=== PATIENT | male | born 1930 | race Caucasian/White ===

== ENCOUNTER → 2017-04-02 | Outpatient (CLI) | payer MEDICARE, BC ==
[~2017-04-02] MED LIST: ACTOS15 MG PO; ADULT LOW DOSE81 MG PO; AMLODIPINE BESYL5 MG PO; ASPIR 8181 MG PO; ASPIRIN325 PO; ATORVASTATIN CA40 MG PO; AZITHROMYCIN 2250 MG PO; CEFUROXIME500 MG PO; CENTRUM COMPLE1 EACH PO; CITRUCEL500 MG PO; COLACE100 MG PO; ELIQUIS5 MG PO; FIBER LAXATIV0.52 GM PO; FIBERCON625 M1 PO; FISH OIL 1,2001 EAC3 PO; FISH OIL SOFTG1 EACH PO; GLUCOSAMINE HC500 MG PO; IBUPROFEN 400400 M2 PO; LEVAQUIN 500 M500 M2 PO; LISINOPRIL20 MG PO; LISINOPRIL40 MG PO; LOPRESSOR25 PO; LOVASTAT10 PO; MEDROL DOSPAK21 TA1 PO; MEDROLDOSEPACK PO; METAMUCIL0.52 GM PO; MUCINEX600 MG PO; NEILMED SINUS R1 KIT NASAL; NORVASC10 MG PO; OMEGA-31000 M1 PO; OXYBUTYNIN 5 MG5 M1 PO; PREDNISONE 10 M10 MG PO; PRINIVIL40 MG PO; TAMSULOSIN HCL0.4 MG PO; TRIPLE FLEX CA1 EACH PO; VENTOLIN HFA 1818 GM INH; VITAMIN D3400 UNIT PO; XARELTO20 MG PO
[2017-04-02 14:08] LABS: ABSOLUTE BASOPHILS 0.1 thou/uL (0.0-0.2); ABSOLUTE EOSINOPHILS 0.2 thou/uL (0.0-0.7); ABSOLUTE LYMPHOCYTES 2.1 thou/uL (0.8-5.3); ABSOLUTE MONOCYTES 0.6 thou/uL (0.0-1.2); ABSOLUTE NEUTROPHILS 4.4 thou/uL (1.6-8.1); BASOPHILS 0.8 %; EOSINOPHILS 3.2 %; HEMATOCRIT 40.8 % (42.0-52.0); HEMOGLOBIN 14.3 gm/dL (14.0-18.0); MCH 30.7 pg (26.0-34.0); MCHC 35.1 g/dL (28.0-37.0); MCV 87.4 fL (80.0-100.0); MONOCYTES 8.3 %; MPV 8.6 fl. (7.2-11.1); NUCLEATED RBCS 0 /100WBC; PLATELET COUNT* 172 thou/uL (150-400); POLYS 59.7 %; RBC 4.67 mil/uL (4.50-6.00); WBC 7.4 thou/uL (4.0-11.0)
[2017-04-02 14:10] LABS: CREATININE 0.9 mg/dL (0.6-1.3)
[2017-04-02 14:12] LABS: APTT 31.3 Seconds (25.0-31.3); INR 1.1; PROTIME 11.1 Seconds (9.20-11.50)
== END ==
LOC: M.LAB 12:30
PROVIDERS: Urology
DX: C61 Malignant neoplasm of prostate (principal); R91.1 Solitary pulmonary nodule; K76.0 Fatty (change of) liver, not elsewhere classified; N28.1 Cyst of kidney, acquired; K44.9 Diaphragmatic hernia without obstruction or gangrene; N31.2 Flaccid neuropathic bladder, not elsewhere classified; M47.895 Other spondylosis, thoracolumbar region; I25.10 Atherosclerotic heart disease of native coronary artery without angina pectoris; I10 Essential (primary) hypertension; E78.5 Hyperlipidemia, unspecified; Z90.49 Acquired absence of other specified parts of digestive tract

== ENCOUNTER 2018-09-13 06:08 | Inpatient (IN) | payer OTHER ==
[~2018-09-13] VITALS: Ht 182.9 cm; Wt 97.3 kg
[2018-09-13 06:16] VITALS: BP 149/105
[2018-09-13 06:39] LABS: ABSOLUTE BASOPHILS 0.1 thou/uL (0.0-0.2); ABSOLUTE EOSINOPHILS 0.1 thou/uL (0.0-0.7); ABSOLUTE LYMPHOCYTES 1.7 thou/uL (0.8-5.3); ABSOLUTE MONOCYTES 0.8 thou/uL (0.0-1.2); ABSOLUTE NEUTROPHILS 5.1 thou/uL (1.6-8.1); BASOPHILS 0.8 %; EOSINOPHILS 1.6 %; HEMATOCRIT 44.2 % (42.0-52.0); HEMOGLOBIN 15.1 gm/dL (14.0-18.0); LYMPHOCYTES 21.9 %; MCH 30.1 pg (26.0-34.0); MCHC 34.1 g/dL (28.0-37.0); MCV 88.5 fL (80.0-100.0); MONOCYTES 9.9 %; MPV 9.7 fl. (7.2-11.1); NUCLEATED RBCS 0 /100WBC; PLATELET COUNT* 145 thou/uL (150-400); POLYS 65.8 %; RBC 4.99 mil/uL (4.50-6.00); RDW-CV 14.2 % (10.5-14.5); WBC 7.8 thou/uL (4.0-11.0)
[2018-09-13 06:52] LABS: INR 1.1; PROTIME 11.5 Seconds (9.20-11.50)
[2018-09-13 06:55] LABS: CREATININE 1.3 mg/dL (0.6-1.3); POTASSIUM 4.2 mmol/L (3.5-5.1)
[2018-09-13 06:59] LABS: ALBUMIN 3.9 g/dL (3.4-5.0); TOTAL BILIRUBIN 0.8 mg/dL (<0.1-1.0); TOTAL PROTEIN 7.8 g/dL (6.4-8.2)
--- NOTE | 2018-09-13 07:48 | NUR ---
DERIC NOTIFIED UPON PT RETURN PT CONNECTED TO MONITOR AND O2
[2018-09-13] MEDS ORDERED: TYLENOL325 MG PO ×2 (08:36→08:37)
[2018-09-13 11:16] LABS: URINE BILIRUBIN NEGATIVE (Negative); URINE BLOOD NEGATIVE (Negative); URINE CLARITY CLEAR; URINE COLOR YELLOW; URINE GLUCOSE-RANDOM NEGATIVE (Negative); URINE KETONES NEGATIVE (Negative); URINE LEUKOCYTES-REFLEX NEGATIVE (Negative); URINE NITRITE-REFLEX NEGATIVE (Negative); URINE PROTEIN NEGATIVE (Negative); URINE UROBILINOGEN 0.2 E.U./dl (0.2-1.0)
[2018-09-13] MEDS ORDERED: BUMETANIDE0.25 MG/1 PO (12:24)
[2018-09-13 13:22] VITALS: BP 129/86
--- NOTE | 2018-09-13 15:43 | EKG ---
[place] [address] ELECTROCARDIOGRAM REPORT Name: MARY JANE ANDERSON Room: [place] [address] ADM IN [facility].#: [id number] Admission: 09/13/18 Attend Phys: Grecia Limon Discharge: Date of : 34 Report #: [id number] THIS REPORT FOR: //name// [facility] ED Test Date: 2018-09-13 Test Time: 06:24:41 Pat Name: MARY JANE ANDERSON Department: Room: [facility] Gender: M Drop Wirer: : 1930 Requested By: Nayana Man Order Number: [id number] MD: Felix Camacho Measurements Intervals [place] Rate: 80 P: MI: QRS: -66 QRSD: 163 T: 96 QT: 434 QTc: 501 Interpretive Statements Afib/flut and V-paced complexes No further analysis attempted due to paced rhythm Compared to ECG 01/24/2017 08:23:03 Sinus rhythm no longer present First degree AV block no longer present T-wave abnormality no longer present Possible ischemia no longer present Electronically Signed On 09-13-2018 15:43:25 CDT by Felix Camacho [email or web address] <ELECTRONICALLY SIGNED> By: Felix Camacho MD, FACC 09/13/18 1543 Felix Camacho MD, FACC /EPI
[2018-09-13 17:22] VITALS: BP 121/68
[2018-09-13 21:10] VITALS: BP 136/91
[2018-09-13 21:16] VITALS: BP 124/51
[2018-09-14] VITALS: BP 143/94
[2018-09-14 04:00] VITALS: BP 108/71
--- NOTE | 2018-09-14 05:50 | NUR ---
RECEIVED REPORT AND ASSUMED CARE AT 1910. PT TRANSPORTED BY NURSING FROM ED TO ROOM 224. VSS. CARDIAC MONITORING IN PLACE. PT DENIES COMPLAINTS OF PAIN. ASSESSMENT COMPLETED CHARTED. NIH=0. PT UP WITH ASSIST, 2L NC. CPAP AT NOC. BED LOCKED IN LOWEST POSITION, CALL LIGHT WITHIN REACH, BED ALARM ON. HOURLY ROUNDING COMPLETED AND ALL NEEDS MET.
[2018-09-14 06:08] LABS: CALCIUM 8.7 mg/dL (8.5-10.1); CREATININE 1.2 mg/dL (0.6-1.3); POTASSIUM 3.8 mmol/L (3.5-5.1)
[2018-09-14 07:59] VITALS: BP 130/85
--- NOTE | 2018-09-14 09:35 | NUR ---
ASSUMED CARE OF PT AT 0730. PT RESTING IN BED. PT A&0X4, FORGETFUL AT TIMES. PT TRACING V PACED ON THE CHIEF QUALITY OFFICER. +1 EDEMA NOTED TO BILATERAL LE'S. PT ON 2L NC SAT UPPER 90'S. PT DENIES ANY PAIN OR SHORTNESS OF BREATH AT THIS TIME. [facility] COMPLETED-PT SCORING 0. PT UP WITH 1 ASSIST TO BATHROOM. CARDIOLOGY CONSULT IN PLACE. PT AT BEDSIDE AND UPDATED ON CURRENT PLAN OF CARE. SPIRITUAL CARE HERE PER PT REQUEST. PT GOAL FOR TODAY IS TO MONITOR LABS, INCREASE ACTIVITY AND IV LASIX. AM ASSESSMENT CHARTED. MEDICATIONS PER JUN. PT REPOSITIONS SELF. HOURLY ROUNDING OBSERVED. BED IN LOW POSITION. BED ALARM IN PLACE. FALL PRECAUTIONS IN PLACE. CALL LIGHT WITHIN REACH. WILL CONTINUE PLAN OF CARE.
--- NOTE | 2018-09-14 09:50 | CON ---
[address] [address] CONSULTATION Name: MARY JANE ANDERSON Room: [address] IN .R.#: [id number] Admission: 09/13/18 Attend Phys: Grecia Limon Discharge: Date of : 34 Report #: [id number] THIS REPORT FOR: //name// CC: CHELLY Oh CARDIOLOGY CONSULT NOTE INDICATION: Acute heart failure. HISTORY OF PRESENT ILLNESS: The patient is a very pleasant 88-year-old gentleman well known to myself. He has a history of single-vessel coronary artery disease with left anterior descending stenosis, which was not intervened upon. He has preserved left ventricular systolic function by noninvasive studies. 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 He has a history of paroxysmal atrial fibrillation. He is chronically anticoagulated and having no bleeding problems. He presented to the hospital with confusion, choking and heart failure. He was given Lasix and has had significant diuresis. His primary complaint seems to be exertional dyspnea as well as some insomnia, moderate amount of confusion which has been quite concerned and choking when he swallows. CARDIAC RISK FACTORS: Include hypertension and dyslipidemia. Previous evaluation of his atypical chest pain has been unremarkable. PAST MEDICAL HISTORY: 1. Chronotropic incompetence, status post dual chamber pacemaker placement. 2. Paroxysmal atrial fibrillation. 3. Chronic anticoagulation. 4. Single vessel coronary artery disease as outlined above. 5. History of recurrent transient ischemic attacks. 6. Hypertension. 7. Dyslipidemia. PAST SURGICAL HISTORY: Permanent pacemaker placement for chronotropic incompetence. FAMILY HISTORY: Noncontributory. SOCIAL HISTORY: The patient is a nonsmoker. He does not drink alcohol. He lives with his family including his . ALLERGIES: CETIRIZINE. HOME MEDICATIONS: Tylenol p.r.n., albuterol inhaler 1 puff q.4 hours p.r.n., amlodipine 10 mg half a tablet b.i.d., Eliquis 5 mg b.i.d., atorvastatin [address] [place] [address] CONSULTATION Name: MARY JANE ANDERSON Room: [address]#: [id number] Admission: 09/13/18 Attend Phys: Grecia Limon Discharge: Date of : 32 Report #: [id number] at bedtime, Bumex daily dose unknown, vitamin D3 400 units daily, Colace 100 mg daily, glucosamine chondroitin supplement daily, lisinopril 20 mg b.i.d., metoprolol tartrate 50 mg b.i.d., fish oil 1200 mg b.i.d., Metamucil 1 capsule daily, sinus rinse p.r.n., and Flomax 0.4 mg daily. PHYSICAL EXAMINATION: VITAL SIGNS: Blood pressure 121/68, pulse 77. Telemetry monitoring currently shows atrially sensed ventricularly paced rhythm. HEENT: Normocephalic and atraumatic. Extraocular muscles intact. Mucous membranes are dry. NECK: Shows no jugular venous distention. CHEST: Reveals diminished breath sounds. I do not appreciate wheezes or rales. CARDIAC: Distant S1 and S2, without gallop or murmur. ABDOMEN: Soft and nontender. EXTREMITIES: Show 2+ edema to the knees bilaterally. SKIN: Dry. LABORATORY DATA: A 12-lead EKG shows what appears to be atrial fibrillation with ventricular pacing. Chest x-ray shows pulmonary vascular congestion. CTA of the chest shows no evidence of pulmonary embolism. There is pulmonary congestion noted. Labs are reviewed. Troponins are unremarkable. NT-proBNP is elevated consistent with acute heart failure. IMPRESSION AND RECOMMENDATION: 1. Acute on chronic diastolic heart failure. Agree with diuresis with IV Lasix to improve the patient's breathing. I would repeat an echocardiogram, as it has been sometime since we assessed left ventricular function. 2. Hypertension. Blood pressure adequately controlled, especially with diuresis. Continue home medications as outlined above. 3. Confusion, etiology not entirely clear. I would check UA to rule out urinary tract infection and urosepsis. 4. Aspiration. We would recommend swallow study. 5. Status post dual chamber pacemaker placement for chronotropic insufficiency. We will interrogate pacemaker function while in hospital, as he is due for that at this time. <ELECTRONICALLY SIGNED> By: Felix Camacho MD, FACC 09/14/18 0950 [id number] Camacho MD, FACC /nt
--- NOTE | 2018-09-14 11:24 | NUR ---
Pt is A&O. Resides at home with his . completes cooking, dtr comes several times/month to clean, Pt continues to drive. Pt is independent with ADLs, assists as needed. No home o2. Pt does sleep with a cpap. Pt has a walker, cane and wc at home, only really uses them for community distances, if at all. No hx of HH or SNF. Goal is home at dc, unsure if he will have any dc needs, CM will continue to follow.
[2018-09-14 11:54] VITALS: BP 90/55
--- NOTE | 2018-09-14 14:09 | NUR ---
Message received from [place] [facility] DESTIN spoke with Dr Oh, he informed that he does not feel that the Pt is medically stable to transfer today, but maybe tomorrow. DESTIN left a for transfer nurse at [phone]
[2018-09-14 16:00] VITALS: BP 93/59
--- NOTE | 2018-09-14 16:38 | NUR ---
NO ACUTE CHANGES THROUGHOUT SHIFT. REFER TO CHARTING. PT SLOWLY PROGRESSING TOWARDS GOALS. IV LASIX TODAY WITH GOOD URINE OUTPUT. PT DENIES ANY PAIN OR SHORTNESS OF BREATH THROUGHOUT AFTERNOON. CONTINUES TO TRACE V PACED ON THE DOCUMENTATION CLERK. ON 2L NC SAT 95%. PT UP WITH 1 ASSIST TO BATHROOM. AT BEDSIDE THROGUHOUT SHIFT. PT UP TO CHAIR FOR MEALS-TOLERATED WELL. MEDICATIONS PER JUN. PT REPOSITIONS SELF. HOURLY ROUNDING OBSERVED. BED IN LOW POSITION. CALL LIGHT WITHIN REACH. WILL CONTINUE PLAN OF CARE.
[2018-09-14 20:00] VITALS: BP 120/85; BP 90/50
[2018-09-15] VITALS: BP 108/71
[2018-09-15 04:00] VITALS: BP 127/84
--- NOTE | 2018-09-15 07:39 | NUR ---
PT CARE ASSUMED AT 1930. SAT MAINTAINED IN 02. ALERT AND ORIENTED X4, FORGETFUL AT TIMES. CALL LIGHT WITHINI REACH AND BED IN LOW POSITION. DENIES PAIN AND SOB. HOURLY ROUNDING DONE FOR PT SAFETY.
[2018-09-15 08:00] VITALS: BP 128/89
--- NOTE | 2018-09-15 09:28 | NUR ---
ASSUMED CARE OF PT AT 0730. PT RESTING IN BED. AND FAMILY AT BEDSIDE. PT A&0X4, FORGETFUL AND CONFUSED AT TIMES. IMPULSIVE AT TIMES. BED/CHAIR ALARM IN PLACE. PT DENIES ANY PAIN OR SHORTNESS OF BREATH AT THIS TIME. PT TRACING V PACED ON THE NATIONAL SALES EXECUTIVE. ON 2L NC SAT 96%. PT UP WITH 1 ASSIST TO BATHROOM. PT GOAL FOR TODAY IS ECHO, TITRATE OXYGEN AND INCREASE ACTIVITY. AM ASSESSMENT CHARTED. MEDICATIONS PER JUN. PT REPOSITIONS SELF. HOURLY ROUNDING OBSERVED. BED IN LOW POSITION. BED ALARM IN PLACE. FALL PRECAUTIONS IN PLACE. CALL LIGHT WITHIN REACH. WILL CONTINUE PLAN OF CARE.
--- NOTE | 2018-09-15 11:05 | 2DMMODE ---
[place] [address] 2 D/M-MODE ECHOCARDIOGRAM Name: MARY JANE ANDERSON Room: [address] IN [facility]#: [id number] Admission: 09/13/18 Attend Phys: Herb Oh Discharge: Date of : 34 Date of Service: 09/15/18 1105 Report #: [id number] THIS REPORT FOR: //name// APPROVED REPORT Study performed: 09/15/2018 10:29:43 EXAM: Comprehensive 2D, Doppler, and color-flow Echocardiogram Patient Location: In-Patient Room #: [facility] Status: routine BSA: 2.19 HR: 80 bpm BP: 128/89 mmHg Rhythm: NSR Other Information Study Quality: Good Indications Dyspnea 2D Dimensions IVSd: 14.76 (7-11mm) LVOT Diam: 20.76 (18-24mm) LVDd: 52.72 mm PWd: 12.74 (7-11mm) Ascending Ao: 37.11 (22-36mm) LVDs: 44.28 (25-40mm) Aortic Root: 37.40 mm Volumes Left Atrial Volume (Systole) LA ESV Index: 34.90 mL/m2 Aortic Valve AoV Peak Eligio.: 1.15 m/s AO Peak Gr.: 5.32 mmHg LVOT Max P.89 mmHg AO Mean Gr.: 2.94 mmHg LVOT Mean P.94 mmHg LVOT Max V: 0.69 m/s AO V2 VTI: 17.40 cm LVOT Mean V: 0.44 m/s REGI (VTI): 2.09 cm2 LVOT V1 VTI: 10.73 cm Mitral Valve E/A Ratio: 2.03 MV Decel. Time: 174.04 ms MV E Max Eligio.: 0.61 m/[place] [address] 2 D/M-MODE ECHOCARDIOGRAM Name: MARY JANE ANDERSON Room: [address] IN ..#: [id number] Admission: 09/13/18 Attend Phys: Herb Oh Discharge: Date of : 34 Date of Service: 09/15/18 1105 Report #: [id number] MV PHT: 50.47 ms MVA (PHT): 4.36 cm2 TDI E/Lateral E': 4.36 E/Medial E': 6.78 Medial E' Eligio.: 0.09 m/s Lateral E' Eligio.: 0.14 m/s Pulmonary Valve PV Peak Eligio.: 0.79 m/s PV Peak Gr.: 2.52 mmHg Tricuspid Valve RAP Estimate: 5.00 mmHg TR Peak Gr.: 24.22 mmHg RVSP: 29.00 mmHg PA Pressure: 29.00 mmHg Left Ventricle The left ventricle is normal size. There is global hypokinesis. The anteroseptal wall appears almost akinetic. Mild concentric left ventricular hypertrophy. Left ventricular systolic function is moderate to severely decreased. LVEF is 30-35%. Transmitral Doppler flow pattern suggests restrictive physiology. Right Ventricle The right ventricle is normal size. The right ventricular systolic function is normal. Pacemaker lead is present in the right ventricle. Atria Left atrium is mildly dilated. Right atrium is mildly dilated. Aortic Valve Aortic valve leaflets are mildly thickened. No aortic regurgitation is present. There is no aortic valvular stenosis. Mitral Valve The mitral valve is normal in structure. Mild mitral regurgitation. No evidence of mitral valve stenosis. Tricuspid Valve The tricuspid valve is normal in structure. Mild tricuspid regurgitation. No pulmonary hypertension. Pulmonic Valve The pulmonary valve is normal in structure. There is no pulmonic [place] [address] 2 D/M-MODE ECHOCARDIOGRAM Name: DANY ANDERSONCalvin Kinsey Room: [address]#: [id number] Admission: 09/13/18 Attend Phys: Herb Oh Discharge: Date of : 32 Date of Service: 09/15/18 1105 Report #: [id number] Great Vessels The aortic root is normal in size. IVC is normal in size and collapses >50% with inspiration. Pericardium There is no pericardial effusion. <Conclusion> The left ventricle is normal size. Mild concentric left ventricular hypertrophy. Left ventricular systolic function is moderate to severely decreased. LVEF is 30-35%. Transmitral Doppler flow pattern suggests restrictive physiology. Left atrium is mildly dilated. Right atrium is mildly dilated. Mild mitral regurgitation. Mild tricuspid regurgitation. No pulmonary hypertension. <ELECTRONICALLY SIGNED> By: Felix Camacho MD, FACC 09/15/18 1105 1105 1105 Felix Camacho MD, FACC /INF
[2018-09-15 12:03] VITALS: BP 107/70
--- NOTE | 2018-09-15 12:54 | NUR ---
Pt continues to not be medically stable to transfer, plan cath tomorrow.
[2018-09-15 14:07] LABS: HEMATOCRIT 42.6 % (42.0-52.0); HEMOGLOBIN 14.4 gm/dL (14.0-18.0); MCHC 33.9 g/dL (28.0-37.0); MCV 88.3 fL (80.0-100.0); MPV 9.8 fl. (7.2-11.1); RBC 4.82 mil/uL (4.50-6.00); RDW-CV 13.9 % (10.5-14.5); WBC 7.6 thou/uL (4.0-11.0)
[2018-09-15 14:11] LABS: CALCIUM 8.7 mg/dL (8.5-10.1); CREATININE 1.2 mg/dL (0.6-1.3); POTASSIUM 3.8 mmol/L (3.5-5.1)
[2018-09-15 14:12] LABS: INR 1.2; PROTIME 12.2 Seconds (9.20-11.50)
[2018-09-15 16:28] VITALS: BP 110/77
--- NOTE | 2018-09-15 16:34 | NUR ---
NO ACUTE CHANGES THROUGHOUT SHIFT. REFER TO CHARTING. PT HAD ECHO TODAY-REFER TO RESULTS. CARDIOLOGY CONSULT IN PLACE. ORDERS RECEIVED FOR HEART CATH TOMORROW 09/16. PT NPO AFTER MIDNIGHT. MEDICATION ADJUSTMENTS MADE. REFER TO EMAR. PT PROGRESSING TOWARDS GOALS-PT ON RA SAT UPPER 90'S. DENIES ANY PAIN OR SHORTNESS OF BREATH THIS AFTERNOON. CONTINUES TO TRACE V PACED ON THE PRODUCT PICKER. PT UP WITH 1 ASSIST. UP TO CHAIR FOR MEALS. TOLERATED WELL. AMBULATED IN HALLWAY WITH CARDIAC REHAB AND WALKER. TOLERATED FAIR. PT AT BEDSIDE THROUGHOUT SHIFT. MEDICATIONS PER JUN. PT REPOSITIONS SELF. HOURLY ROUNDING OBSERVED. BED IN LOW POSITION. BED ALARM IN PLACE. FALL PRECAUTIONS IN PLACE. CALL LIGHT WITHIN REACH. WILL CONTINUE PLAN OF CARE.
[2018-09-15 20:10] VITALS: BP 119/73
[2018-09-16] VITALS (16 sets, daily range): BP systolic 104–139; BP diastolic 63–89
--- NOTE | 2018-09-16 05:39 | NUR ---
PT CARE ASSUMED AT 1930. SAT MAINTAINED IN RA. ALERT AND ORIENTED X4, FORGETFUL. DENIES PAIN AND SOB. CALL LIGHT WITHIN REACH AND BED IN LOW PSOITION. HOURLY ROUNDING DONE FOR PT SAFETY.
--- NOTE | 2018-09-16 08:00 | NUR ---
ASSUMED CARE OF PT AT 0730. PT RESTING IN BED. PT A&0X4, FORGETFUL AT TIMES. PT DENIES ANY PAIN OR SHORTNESS OF BREATH AT THIS TIME. PT NPO FOR CARDIAC CATH TODAY. PT TRACING V PACED ON THE DANDY TENDER. ON RA SAT UPPER 90'S. PT UP WITH 1 ASSIST TO BATHROOM. VOIDS PER URINAL. PT GOAL FOR TODAY IS CARDIAC CATH AND DISCHARGE PLANNING TO HOME. AM ASSESSMENT CHARTED. MEDICATIONS PER MAR. PT REPOSITIONS SELF. HOURLY ROUNDING OBSERVED. BED IN LOW POSITION. CALL LIGHT WITHIN REACH. WILL CONTINUE PLAN OF CARE.
--- NOTE | 2018-09-16 10:24 | CARD ---
[address] [address] CARDIAC CATH REPORT Name: MARY JANE ANDERSON Room: [address] IN ..#: [id number] Admission: 09/13/18 Attend Phys: Grecia Limon Discharge: Date of : 32 Report #: [id number] THIS REPORT FOR: //name// APPROVED REPORT Study performed: 09/16/2018 07:35:02 Patient Details Patient Status: In-Patient Room #: 224 The patient is a 88 year-old male Event Personnel Felix Camacho Indigo [employer] Tender Cloth, Brittany Sierra RN Senior Sales Compensation Analyst, Joselito Omer (R) Monitor, Scott Green ELECTRICIAN TECHNICIAN Scrub Procedures Performed Left Heart Cath w/or w/o Coronaries Procedure Narrative The patient was brought electively to the Cardiac Catheterization Laboratory and was prepped and draped in a sterile manner. The right wrist was infiltrated with 1% Lidocaine subcutaneous anesthesia. A Slender Glidesheath sheath was inserted into the right radial artery. Coronary angiography was performed using coronary diagnostic catheters. The right coronary system was accessed and visualized with a Diagnostic 3DRC 6fr catheter. The left coronary system was accessed and visualized with a Diagnostic Tig 4 catheter. Closure device was deployed with a Fr Vasc-Band Reg 24cm. The patient tolerated the procedure well and there were no complications associated with the procedure. Intraoperative Conscious Sedation Fentanyl 25 mcg No sedation given Fluoro Time: 6.5 minutes Dose: DAP 12663 cGycm2 946 mGy Contrast Type and Amount: Visipaque 60 ml Diagnostic Cath Left Main Normal. LAD 10% plaque proximally 20% plaque in the midportion. Mild nonocclusive disease in the distal portion. Diagonal 1 Normal. Circumflex Normal in the proximal [place] [address] CARDIAC CATH REPORT Name: MARY JANE ANDERSON Tio Room: [address] IN [facility]#: [id number] Admission: 09/13/18 Attend Phys: Grecia Limon Discharge: Date of : 32 Report #: [id number] OM1 10% plaque in the proximal and midportion. OM2 Normal. Right Coronary 20% plaque proximally. 30% plaque in the mid to distal portion. R PDA Normal. RPLV Normal. Left Ventriculography Left Ventriculography was not performed. Hemodynamics The aortic pressure is 100/60 mmHg with a mean of 80 mmHg. Conclusion 1. Nonocclusive coronary artery disease as outlined above. Recommendations CABG 1. Continue current medical management and aggressive risk factor modification. <ELECTRONICALLY SIGNED> By: Felix Camacho MD, [facility] 09/16/18 [address] [place], [place] [address]jade Camacho MD, FACC /INF
[2018-09-16] MEDS ORDERED: BUMETANIDE 1 MG1 M1 PO (17:38)
--- NOTE | 2018-09-16 18:42 | NUR ---
DISCHARGE ORDERS RECEIVED. DISCHARGE INSTRUCTIONS, CARE NOTES, SCRIPTS AND FOLLOW UP APPTS GIVEN TO PT. PT COMMUNICATES UNDERSTANDING OF DISCHARGE TEACHING. IV'S AND LEAD HOUSEKEEPER REMOVED. PT DISCHARGED WITH ALL BELONGINGS AND PAPERWORK VIA WHEELCHAIR WITH NURSING STAFF TO FAMILY OWN PERSONAL VEHICLE.
== END 2018-09-16 18:48 | disposition home or self-care (01) | DRG 286 ==
LOC: M.ERS 06:08 → M.2W 09:38 → M.TBA-ER 09:38 → M.2W 20:56
PROVIDERS: Internal Medicine; Personal Emergency Response Attendant; ADMIT Internal Medicine
PROC: B211YZZ Fluoroscopy of Multiple Coronary Arteries using Other Contrast (ICD-10-PCS; principal; 2018-09-16)
PROC: 4A023N7 Measurement of Cardiac Sampling and Pressure, Left Heart, Percutaneous Approach (ICD-10-PCS; principal; 2018-09-16)
DX: I11.0 Hypertensive heart disease with heart failure (principal); G93.41 Metabolic encephalopathy; G45.9 Transient cerebral ischemic attack, unspecified; I50.33 Acute on chronic diastolic (congestive) heart failure; I25.10 Atherosclerotic heart disease of native coronary artery without angina pectoris; G47.33 Obstructive sleep apnea (adult) (pediatric); E11.9 Type 2 diabetes mellitus without complications; J32.9 Chronic sinusitis, unspecified; I48.0 Paroxysmal atrial fibrillation; E78.5 Hyperlipidemia, unspecified; Z85.46 Personal history of malignant neoplasm of prostate; Z90.49 Acquired absence of other specified parts of digestive tract; Z88.8 Allergy status to other drugs, medicaments and biological substances; Z91.013 Allergy to seafood; Z79.01 Long term (current) use of anticoagulants; Z95.0 Presence of cardiac pacemaker; Z79.899 Other long term (current) drug therapy